=== PATIENT | female | born 1955 | race Hispanic/Latino ===

== ENCOUNTER 2016-10-19 11:12 | Day surgery (SDC) | payer OTHER ==
[~2016-10-19 11:12] MED LIST: ANCEF/STERILE WATER 2 GM/20 ML IV NR
[2016-10-19] MEDS ORDERED: DILAUDID IV PRN (11:58)
[2016-10-19] MEDS ORDERED: PERCOCET 5/325 PO PRN (11:58)
[2016-10-19] MEDS ORDERED: ZOFRAN IV PRN (11:58)
[2016-10-19] MEDS ORDERED: VERSED IV NR (12:00)
[2016-10-19] MEDS ORDERED: PEPCID PO NR (12:00)
[2016-10-19] MEDS ORDERED: NACL 0.9% 1000 ML 1,000 ML IV SCH (12:00)
[2016-10-19] MEDS ORDERED: ZOFRAN ONE (12:00)
--- NOTE | 2016-10-19 12:06 | Anesthesia Day of Surgery ---
Anesthesia Day of Surgery - Day of Surgery Patient Examined: Yes Patient H&P Reviewed: Yes Patient is NPO: Yes
--- NOTE | 2016-10-19 12:06 | Anesthesia Consultation ---
Anesthesia Consult and Med Hx Date of service: 10/19/16 - Airway Anesthetic Teeth Evaluation: Good ROM Head & Neck: Adequate Mental/Hyoid Distance: Adequate Mallampati Class: Class II Intubation Access Assessment: Probably Good - Pulmonary Exam CTA: Yes - Cardiac Exam Cardiac Exam: RRR - Pre-Operative Health Status ASA Pre-Surgery Classification: ASA2 Proposed Anesthetic Plan: General - Pulmonary Hx Smoking: Yes (former, quit 9 yrs ago) Hx Sleep Apnea: Yes (DX SLEEP APNEA WITH CPAP USE) - Cardiovascular System Hx Hypertension: No - Central Nervous System Hx Psychiatric Problems: Yes (ANXIETY) - Gastrointestinal Hx Gastroesophageal Reflux Disease: Yes - Hematic Hx Anemia: Yes (NOT RECENT) - Other Systems Hx Cancer: No Hx Obesity: Yes
[2016-10-19] MEDS ORDERED: REGLAN PO NR (12:13)
[2016-10-19] MEDS ORDERED: DILAUDID ONE (13:02)
[2016-10-19] MEDS ORDERED: DIPRIVAN 10 MG/ML IV ONE (13:02)
[2016-10-19] MEDS ORDERED: XYLOCAINE MPF 2% ONE (13:04)
[2016-10-19] MEDS ORDERED: WATER FOR IRRIG STERILE IR ONE (13:36)
[2016-10-19] MEDS ORDERED: OMNIPAQUE (300 MG) IR ONE (13:38)
[2016-10-19] MEDS ORDERED: NACL 0.9% 1000 ML 1,000 ML ONE (13:42)
--- NOTE | 2016-10-19 13:56 | Short Stay Summary ---
Short Stay Documentation - History H&P: obtained from office - Allergies and Medications Current Medications: Allergies ciprofloxacin [From Cipro] Allergy (Verified 10/11/16 14:15) Hives ciprofloxacin HCl [From Cipro] Allergy (Verified 10/11/16 14:15) Hives Home Medications Medication Instructions Recorded Confirmed Last Taken Type Cholecalciferol Vit D3 [Vitamin D3] 1,000 unit PO QDAY 10/11/16 10/11/16 History Estradiol/Norethindrone Acet 1 each PO DAILY 10/11/16 10/11/16 10/18/16 History [Mimvey Lo 0.5-0.1 mg Tablet] LORazepam [Ativan] 1 mg PO QHS 10/11/16 10/11/16 10/18/16 History Linzess 145 mg PO DAILY 10/11/16 10/11/16 10/18/16 History Multivit-Min/FA/Lycopen/Lutein 1 each PO DAILY 10/11/16 10/11/16 10/18/16 History [Centrum Silver Tablet] Paroxetine HCl [Paxil] 30 mg PO DAILY 10/11/16 10/11/16 10/18/16 History lamoTRIgine [LaMICtal] 200 mg PO QDAY 10/11/16 10/11/16 10/18/16 History Active Medications Cefazolin Sodium (Ancef/Sterile Water 2 Gm/20 Ml) 2 gm IV PREOP NR Stop: 10/19/16 23:59 Famotidine (Pepcid) 20 mg PO PREOP NR Stop: 10/19/16 23:59 Last Admin: 10/19/16 12:12 Dose: 20 mg Hydromorphone HCl (Dilaudid) 0.25 mg IV Q10MIN PRN PRN Reason: Pain, Moderate (4-6) Stop: 10/22/16 11:59 Sodium Chloride (Nacl 0.9% 1000 Ml) 1,000 mls @ 75 mls/hr IV DIRECT JUAN CARLOS Last Admin: 10/19/16 12:09 Dose: 75 mls/hr Metoclopramide HCl (Reglan) 10 mg PO PREOP NR Stop: 10/19/16 23:59 Last Admin: 10/19/16 12:24 Dose: 10 mg Midazolam HCl (Versed) 2 mg IV PREOP NR Stop: 10/19/16 23:59 Last Admin: 10/19/16 12:26 Dose: 2 mg - Brief post op/procedure progress note Date of procedure: 10/19/16 Pre-op diagnosis: hematuria Post-op diagnosis: other (urethral stenosis) Procedure: cysto, rpg, urethral dilation, bladder bx Anesthesia: GETA Surgeon: JESSICA HALL Estimated blood loss: minimal Pathology: list (bladder bx) Condition: stable - Hospital course Hospital course: macrobid & norco on chart - Disposition Condition at discharge: Stable Disposition: DC-01 TO HOME OR SELFCARE Short Stay Discharge Plan Follow up with: CARLYLE DUMONT MD [Primary Care Provider] - 7 Days
[2016-10-19] MEDS ORDERED: NORCO 5/325 PO PRN (15:04)
--- NOTE | 2016-10-19 17:11 | Post Anesthesia Evaluation ---
- Post Anesthesia Evaluation Patient Participated: Yes Airway Patent: Yes Stable Respiratory Function: Yes Nausea/Vomiting: No Temp > 96.8F: Yes Pain Manageable: Yes Adequeate Hydration: Yes Anesthesia Complications: No Block Receding Appropriately: Not Applicable Patient on Ventilator: No
[2016-10-19 18:47] VITALS: BP 137/77
--- NOTE | 2016-10-20 09:30 | Fluoroscopy Report ---
Retrograde pyelogram: Bladder lesion. Injections of contrast were made into the distal ureters on each side. There is good opacification of the ureters and both intrarenal collecting systems. No abnormality identified.
--- NOTE | 2016-11-05 13:25 | Post Operative Note ---
Pre-op diagnosis: hematuria Post-op diagnosis: other (bladder lesion) Procedure: cysto, rpg, urethral dilation, bladder bx Indications This patient is a 60-year-old female with a history of microhematuria. CT abdomen and pelvis was unremarkable. She presents now for cystoscopy. Risks benefits complications were explained. Procedure Patient was taken to the operative suite placed in a supine position after adequate general anesthesia. Prepped and draped in a sterile fashion. Benedict cystoscopy was performed with a 24 Marshallese Storz cystoscope, both ureteral orifices were normal position. No tumors or stones were noted, however she was found to have a small uric edematous area right bladder wall. Bilateral retrograde pyelograms were obtained with an 8 Marshallese [place] catheter and 8 mL of contrast, no filling defects or obstruction noted. Using cold cup biopsy forcep biopsy of lesion was performed. Fulguration without difficulty. Her bladder was drained use x-ray taken the recovery room in stable condition Anesthesia: GETA Surgeon: JESSICA HALL Estimated blood loss: none Pathology: list (bladder lesion) Specimen disposition: to lab Condition: stable Disposition: PACU
== END 2016-10-19 15:53 | disposition home or self-care (01) ==
LOC: OR 11:12
PROVIDERS: ATTEND Urology
DX: N30.21 Other chronic cystitis with hematuria (principal); I10 Essential (primary) hypertension; G47.33 Obstructive sleep apnea (adult) (pediatric); F41.9 Anxiety disorder, unspecified; F32.9 Major depressive disorder, single episode, unspecified; K21.9 Gastro-esophageal reflux disease without esophagitis; E66.9 Obesity, unspecified; Z79.899 Other long term (current) drug therapy; Z88.1 Allergy status to other antibiotic agents; Z87.891 Personal history of nicotine dependence
CPT/HCPCS: 52204; 74420; 88305; A4217; C1758; J0690; J1170; J2250; J2405; J2704; J7030; Q9967